=== PATIENT | male | born 1950 | race Caucasian/White ===

== ENCOUNTER 2019-01-02 19:52 | Inpatient (IN) | payer MEDICARE, MEDICAID ==
[~2019-01-02] VITALS: Ht 175.3 cm; Wt 84.0 kg
--- NOTE | 2019-01-02 20:11 | NUR ---
PT PLACED ON MONITOR AND PA AT BEDSIDE. PT REPORTS SLIGHT PAIN IN CHEST.
--- NOTE | 2019-01-02 20:35 | NUR ---
PT REPORTS ANXIETY BUT NO CP AT THIS TIME. SECOND IV PLACED FOR CTA SCAN.
[2019-01-02 21:11] LABS: BASOPHILS # (AUTO) 0.02 x10^3/uL (0-0.1); BASOPHILS % (AUTO) 0 % (0-1); EOSINOPHILS # (AUTO) 0.11 x10^3/uL (0-0.4); EOSINOPHILS % (AUTO) 1 % (1-7); LYMPHOCYTES # (AUTO) 2.43 x10^3/uL (1-3.4); LYMPHOCYTES % (AUTO) 21 % (22-44); MD NO; MEAN CORPUSCULAR HEMOGLOBIN 30.6 pg (27.5-34.5); MEAN CORPUSCULAR HGB CONC 33.9 g/dL (33.2-36.2); MEAN PLATELET VOLUME 8.9 fL (7.4-10.4); MONOCYTES # (AUTO) 0.78 x10^3/uL (0.2-0.8); MONOCYTES % (AUTO) 7 % (2-9); NEUTROPHILS # (AUTO) 8.27 x10^3/uL (1.8-6.8); NEUTROPHILS % (AUTO) 71 % (42-75); PLATELET COUNT 282 x10^3/uL (130-400); RED BLOOD COUNT 4.86 x10^6/uL (4.38-5.82); RED CELL DISTRIBUTION WIDTH 13.2 % (9.4-14.8)
[2019-01-02 21:21] LABS: ALBUMIN 3.8 g/dL (3.4-5.0); ANION GAP 10 mmol/L (5-15); CHLORIDE 110 mmol/L (98-107)
--- NOTE | 2019-01-02 21:22 | NUR ---
PT IN NO DISTRESS AWAITING TEST RESULTS AND CTA ORDERED.
[2019-01-02 21:26] LABS: ALANINE AMINOTRANSFERASE 25 U/L (12-78); ALKALINE PHOSPHATASE 58 U/L (45-117); BILIRUBIN,TOTAL 0.6 mg/dL (0.2-1.0); TOTAL PROTEIN 7.1 g/dL (6.4-8.2)
--- NOTE | 2019-01-02 21:39 | NUR ---
PT TO CTA VIA GURNEY.
[2019-01-02] MEDS ORDERED: OMNIPAQUE 350 MG/ML, 100ML BOTTLE ONE (21:54)
[2019-01-02] MEDS ORDERED: HEPARIN 5,000 UNITS/ML, 1ML IV ONE (22:30)
[2019-01-02] MEDS ORDERED: HEPARIN 5,000 UNITS/ML, 1ML IV PRN (22:30)
[2019-01-02] MEDS ORDERED: HEPARIN 25,000 UNITS/500ML PMX 500 ML IV PRN (22:30)
[2019-01-02] MEDS ORDERED: HEPARIN 5,000 UNITS/ML, 1ML ONE (22:38)
[2019-01-02] MEDS ORDERED: HEPARIN 25,000 UNITS/500ML PMX 500 ML ONE (22:39)
--- NOTE | 2019-01-02 22:48 | NUR ---
HEPARIN STARTED ORDERED AND PER PHARMACY.
[2019-01-02] MEDS ORDERED: MORPHINE SULFATE 4 MG/ML, 1ML IVPush PRN (23:00)
[2019-01-02] MEDS ORDERED: ONDANSETRON 2MG/ML, 2ML IVPush PRN (23:00)
--- NOTE | 2019-01-02 23:03 | NUR ---
REPORT CALLED TO FLOOR. PT READY FOR TRANSPORT.
[2019-01-02 23:42] VITALS: BP 109/72
[2019-01-02] MEDS ORDERED: METF-649 PO (23:51)
[2019-01-03] VITALS (8 sets, daily range): BP systolic 91–107; BP diastolic 61–74
[2019-01-03] MEDS ORDERED: ONDANSETRON 2MG/ML, 2ML IVPush PRN
[2019-01-03] MEDS ORDERED: ENALAPRILAT 1.25 MG/ML, 2ML IVPush PRN
[2019-01-03 00:30] LABS: HEMOGLOBIN A1C 7.7 % (4.2-6.3)
[2019-01-03] MEDS: LACTATED RINGERS 1,000 ML IV SCH ×2 (00:35→10:15)
[2019-01-03 05:55] LABS: BASOPHILS # (AUTO) 0.03 x10^3/uL (0-0.1); BASOPHILS % (AUTO) 0 % (0-1); EOSINOPHILS # (AUTO) 0.03 x10^3/uL (0-0.4); EOSINOPHILS % (AUTO) 0 % (1-7); LYMPHOCYTES # (AUTO) 2.27 x10^3/uL (1-3.4); LYMPHOCYTES % (AUTO) 20 % (22-44); MD NO; MEAN CORPUSCULAR HEMOGLOBIN 30.6 pg (27.5-34.5); MEAN CORPUSCULAR VOLUME 89.9 fL (81-97); MEAN PLATELET VOLUME 9.5 fL (7.4-10.4); MONOCYTES # (AUTO) 0.84 x10^3/uL (0.2-0.8); MONOCYTES % (AUTO) 7 % (2-9); NEUTROPHILS # (AUTO) 8.16 x10^3/uL (1.8-6.8); NEUTROPHILS % (AUTO) 72 % (42-75); PLATELET COUNT 261 x10^3/uL (130-400); RED BLOOD COUNT 4.47 x10^6/uL (4.38-5.82); RED CELL DISTRIBUTION WIDTH 13.5 % (9.4-14.8)
[2019-01-03] MEDS ORDERED: ASPIRIN 325 MG TABLET EC PO SCH (06:00)
[2019-01-03 06:07] LABS: CALCIUM 8.7 mg/dL (8.5-10.1); CHLORIDE 111 mmol/L (98-107)
[2019-01-03 06:15] LABS: ANION GAP 15 mmol/L (5-15); CHOL/HDL RATIO 5.3; CHOLESTEROL, TOTAL 224 mg/dL (140-239); CREATININE 0.81 mg/dL (0.7-1.3); HDL CHOL % 19 % (26-37); HDL CHOLESTEROL (DIRECT) 42 mg/dL (40-60); LDL CHOLESTEROL,CALCULATED 159 mg/dL (54-169); LDL/HDL RATIO 3.8 (0.5-3.0); TRIGLYCERIDES 115 mg/dL (50-200); VLDL CHOLESTEROL 23 mg/dL (0-25)
[2019-01-03] MEDS: INSULIN LISPRO 100 UNITS/ML, PEN SQ-INSULIN SCH ×4 (07:00→20:51)
[2019-01-03] MEDS ORDERED: MANNITOL PMX 20% 500 ML IVPB PRN (07:30)
[2019-01-03] MEDS ORDERED: EPINEPHRINE 2 MG in SODIUM CHLORIDE 0.9% 248 ML IV SCH (07:30)
[2019-01-03] MEDS ORDERED: VANCOMYCIN 1,200 MG in SODIUM CHLORIDE 0.9% 250 ML IV PRN (07:30)
[2019-01-03] MEDS ORDERED: POTASSIUM CHLORIDE 80 MEQ, SODIUM BICARBONATE 8.4% 10 MEQ, MAGNESIUM SULFATE 0.5 GM, LI... IV PRN (07:30)
[2019-01-03] MEDS ORDERED: REGULAR INSULIN 62.5 UNITS in SODIUM CHLORIDE 0.9% 249.375 ML IV PRN (07:30)
[2019-01-03] MEDS ORDERED: PHENYLEPHRINE 10 MG in SODIUM CHLORIDE 0.9% 249 ML IV PRN (07:30)
[2019-01-03] MEDS ORDERED: CEFUROXIME 1.5 GM in SODIUM CHLORIDE 0.9% 50 ML IVPB PRN (07:30)
[2019-01-03] MEDS ORDERED: DEXMEDETOMIDINE 200 MCG in SODIUM CHLORIDE 0.9% 48 ML IV SCH (07:30)
[2019-01-03] MEDS: NITROGLYCERIN 0.4 MG BOTTLE (25 TABS) SL PRN ×2 (10:57→11:05)
[2019-01-03] MEDS ORDERED: MIDAZOLAM 1 MG/ML, 5ML ONE (12:49)
[2019-01-03] MEDS ORDERED: TICAGRELOR 90 MG TABLET ONE (12:49)
[2019-01-03] MEDS ORDERED: FENTANYL PF 100 MCG/2ML ONE (12:49)
[2019-01-03] MEDS ORDERED: VERAPAMIL 2.5 MG/ML, 2ML ONE (12:49)
[2019-01-03] MEDS ORDERED: LIDOCAINE 2%, 20ML ONE (12:50)
[2019-01-03] MEDS ORDERED: BIVALIRUDIN 250 MG ONE ×2 (12:50→13:34)
[2019-01-03] MEDS ORDERED: DOPAMINE/D5W PMX 250 ML ONE (13:26)
[2019-01-03] MEDS ORDERED: ALBUMIN HUMAN 5% 500 ML IV PRN (13:30)
[2019-01-03] MEDS ORDERED: BIVALIRUDIN 250 MG in SODIUM CHLORIDE 0.9% 50 ML IV SCH (14:25)
[2019-01-03] MEDS ORDERED: HEPARIN 25,000 UNITS/500ML PMX 500 ML IV SCH (14:25)
[2019-01-03] MEDS ORDERED: HEPARIN 25,000 UNITS in DEXTROSE 10% 500 ML IV SCH (14:25)
[2019-01-03] MEDS ORDERED: HEPARIN 25,000 UNITS in DEXTROSE 20% 500 ML IV SCH (14:25)
[2019-01-03] MEDS ORDERED: SODIUM CHLORIDE 0.9% 1,000 ML IV SCH (14:25)
[2019-01-03 16:48] LABS: PLATELET COUNT 307 x10^3/uL (130-400)
[2019-01-03] MEDS: morphine SULFATE 10 MG/ML, 1ML IVPush PRN ×2 (19:59→23:48)
[2019-01-03] MEDS: TICAGRELOR 90 MG TABLET PO SCH (19:59)
[2019-01-03 20:59] LABS: BASOPHILS # (AUTO) 0.01 x10^3/uL (0-0.1); BASOPHILS % (AUTO) 0 % (0-1); EOSINOPHILS % (AUTO) 0 % (1-7); LYMPHOCYTES # (AUTO) 0.91 x10^3/uL (1-3.4); LYMPHOCYTES % (AUTO) 6 % (22-44); MD NO; MEAN CORPUSCULAR HGB CONC 34.3 g/dL (33.2-36.2); MEAN CORPUSCULAR VOLUME 90.3 fL (81-97); MEAN PLATELET VOLUME 9.5 fL (7.4-10.4); MONOCYTES # (AUTO) 1.27 x10^3/uL (0.2-0.8); MONOCYTES % (AUTO) 9 % (2-9); NEUTROPHILS % (AUTO) 85 % (42-75); PLATELET COUNT 289 x10^3/uL (130-400); RED CELL DISTRIBUTION WIDTH 13.1 % (9.4-14.8)
[2019-01-03] MEDS ORDERED: SODIUM CHLORIDE 0.9% 1,000ML IVBOLUS ONE (21:00)
[2019-01-03 21:06] LABS: ANION GAP 11 mmol/L (5-15); CALCIUM 8.3 mg/dL (8.5-10.1); CHLORIDE 109 mmol/L (98-107); CREATININE 1.36 mg/dL (0.7-1.3)
[2019-01-04] MEDS: morphine SULFATE 10 MG/ML, 1ML IVPush PRN ×2 (05:14→23:06)
[2019-01-04 05:33] LABS: ALANINE AMINOTRANSFERASE 22 U/L (12-78); ANION GAP 9 mmol/L (5-15); CALCIUM 7.9 mg/dL (8.5-10.1); CHLORIDE 111 mmol/L (98-107); CREATININE 1.12 mg/dL (0.7-1.3)
[2019-01-04 05:34] LABS: MEAN CORPUSCULAR HEMOGLOBIN 31.3 pg (27.5-34.5); MEAN CORPUSCULAR HGB CONC 34.6 g/dL (33.2-36.2); MEAN CORPUSCULAR VOLUME 90.6 fL (81-97); MEAN PLATELET VOLUME 9.4 fL (7.4-10.4); PLATELET COUNT 224 x10^3/uL (130-400); RED BLOOD COUNT 3.74 x10^6/uL (4.38-5.82); RED CELL DISTRIBUTION WIDTH 13.2 % (9.4-14.8)
[2019-01-04 05:35] LABS: ALKALINE PHOSPHATASE 43 U/L (45-117); BILIRUBIN,TOTAL 0.8 mg/dL (0.2-1.0); TOTAL PROTEIN 5.7 g/dL (6.4-8.2)
[2019-01-04 05:56] LABS: BASOPHILS # (AUTO) 0.05 x10^3/uL (0-0.1); BASOPHILS % (AUTO) 0 % (0-1); EOSINOPHILS # (AUTO) 0.01 x10^3/uL (0-0.4); EOSINOPHILS % (AUTO) 0 % (1-7); LYMPHOCYTES # (AUTO) 1.91 x10^3/uL (1-3.4); LYMPHOCYTES % (AUTO) 14 % (22-44); MD SCAN; MONOCYTES # (AUTO) 1.45 x10^3/uL (0.2-0.8); MONOCYTES % (AUTO) 11 % (2-9); NEUTROPHILS # (AUTO) 10.11 x10^3/uL (1.8-6.8); NEUTROPHILS % (AUTO) 75 % (42-75)
[2019-01-04] MEDS: INSULIN LISPRO 100 UNITS/ML, PEN SQ-INSULIN SCH ×4 (07:25→20:13)
[2019-01-04] MEDS: FUROSEMIDE 20 MG TABLET PO SCH (08:38)
[2019-01-04] MEDS: TICAGRELOR 90 MG TABLET PO SCH ×2 (08:39→20:00)
[2019-01-04] MEDS: ASPIRIN 81 MG TABLET EC PO SCH (08:39)
[2019-01-04] MEDS ORDERED: MIDAZOLAM 1 MG/ML, 5ML ONE (14:05)
[2019-01-04] MEDS ORDERED: FENTANYL PF 250 MCG/5ML ONE (14:05)
[2019-01-05] MEDS: morphine SULFATE 10 MG/ML, 1ML IVPush PRN ×2 (01:59→20:36)
[2019-01-05] MEDS: NITROGLYCERIN 0.4 MG BOTTLE (25 TABS) SL PRN (03:49)
[2019-01-05 04:45] LABS: BASOPHILS # (AUTO) 0.04 x10^3/uL (0-0.1); BASOPHILS % (AUTO) 0 % (0-1); EOSINOPHILS # (AUTO) 0.33 x10^3/uL (0-0.4); EOSINOPHILS % (AUTO) 3 % (1-7); LYMPHOCYTES % (AUTO) 11 % (22-44); MD NO; MEAN CORPUSCULAR HEMOGLOBIN 30.9 pg (27.5-34.5); MEAN CORPUSCULAR HGB CONC 34.1 g/dL (33.2-36.2); MEAN CORPUSCULAR VOLUME 90.7 fL (81-97); MEAN PLATELET VOLUME 9.2 fL (7.4-10.4); MONOCYTES # (AUTO) 1.33 x10^3/uL (0.2-0.8); MONOCYTES % (AUTO) 10 % (2-9); NEUTROPHILS # (AUTO) 10.11 x10^3/uL (1.8-6.8); NEUTROPHILS % (AUTO) 76 % (42-75); PLATELET COUNT 178 x10^3/uL (130-400); RED BLOOD COUNT 3.07 x10^6/uL (4.38-5.82); RED CELL DISTRIBUTION WIDTH 13.5 % (9.4-14.8)
[2019-01-05 04:48] LABS: ANION GAP 10 mmol/L (5-15); CALCIUM 7.8 mg/dL (8.5-10.1); CHLORIDE 113 mmol/L (98-107)
[2019-01-05 04:54] LABS: ALANINE AMINOTRANSFERASE 18 U/L (12-78); ALKALINE PHOSPHATASE 41 U/L (45-117); BILIRUBIN,TOTAL 0.8 mg/dL (0.2-1.0); CREATININE 1.01 mg/dL (0.7-1.3); TOTAL PROTEIN 5.7 g/dL (6.4-8.2)
[2019-01-05] MEDS: INSULIN LISPRO 100 UNITS/ML, PEN SQ-INSULIN SCH ×4 (08:40→20:43)
[2019-01-05] MEDS: TICAGRELOR 90 MG TABLET PO SCH ×2 (08:46→20:37)
[2019-01-05] MEDS: ASPIRIN 81 MG TABLET EC PO SCH (08:46)
[2019-01-05] MEDS: FUROSEMIDE 20 MG TABLET PO SCH (08:46)
[2019-01-05] MEDS ORDERED: MAGNESIUM SULFATE PMX 2GM/50ML 50 ML IV ONE (11:00)
[2019-01-05] MEDS: ENOXAPARIN 40 MG/0.4 ML SQ SCH (11:19)
[2019-01-05] MEDS: INSULIN GLARGINE 100 UNITS/ML, PEN SQ-INSULIN SCH ×2 (11:20→20:45)
[2019-01-05 12:37] LABS: MICROSCOPIC INDICATED
[2019-01-05 12:55] LABS: CULTURE INDICATED? YES
[2019-01-05] MEDS: CEFTRIAXONE PMX 1GM/50ML 50 ML IV SCH (14:35)
[2019-01-05] MEDS: FUROSEMIDE 20 MG/2 ML IV SCH (18:14)
[2019-01-05 20:00] VITALS: BP 99/57
[2019-01-05] MEDS: ATORVASTATIN 80 MG TABLET PO SCH (20:37)
[2019-01-06 02:32] VITALS: BP 93/49
[2019-01-06 05:13] LABS: BASOPHILS # (AUTO) 0.03 x10^3/uL (0-0.1); BASOPHILS % (AUTO) 0 % (0-1); EOSINOPHILS # (AUTO) 0.12 x10^3/uL (0-0.4); EOSINOPHILS % (AUTO) 1 % (1-7); LYMPHOCYTES # (AUTO) 1.42 x10^3/uL (1-3.4); LYMPHOCYTES % (AUTO) 12 % (22-44); MD NO; MEAN CORPUSCULAR HEMOGLOBIN 31.1 pg (27.5-34.5); MEAN CORPUSCULAR HGB CONC 34.1 g/dL (33.2-36.2); MEAN PLATELET VOLUME 9.9 fL (7.4-10.4); MONOCYTES # (AUTO) 0.93 x10^3/uL (0.2-0.8); MONOCYTES % (AUTO) 8 % (2-9); NEUTROPHILS # (AUTO) 9.53 x10^3/uL (1.8-6.8); NEUTROPHILS % (AUTO) 79 % (42-75); PLATELET COUNT 163 x10^3/uL (130-400); RED BLOOD COUNT 2.76 x10^6/uL (4.38-5.82); RED CELL DISTRIBUTION WIDTH 13.3 % (9.4-14.8)
[2019-01-06 05:29] LABS: ALBUMIN 2.9 g/dL (3.4-5.0); ANION GAP 9 mmol/L (5-15); CALCIUM 8.3 mg/dL (8.5-10.1); CHLORIDE 109 mmol/L (98-107)
[2019-01-06 05:32] LABS: ALANINE AMINOTRANSFERASE 19 U/L (12-78); ALKALINE PHOSPHATASE 42 U/L (45-117); BILIRUBIN,TOTAL 0.7 mg/dL (0.2-1.0); CREATININE 1.07 mg/dL (0.7-1.3)
[2019-01-06] MEDS: INSULIN LISPRO 100 UNITS/ML, PEN SQ-INSULIN SCH ×4 (06:40→22:13)
[2019-01-06 08:00] VITALS: BP 108/54
[2019-01-06] MEDS: FUROSEMIDE 20 MG TABLET PO SCH (09:00)
[2019-01-06] MEDS: MAGNESIUM OXIDE 400 MG TABLET PO SCH (09:13)
[2019-01-06] MEDS: ASPIRIN 81 MG TABLET EC PO SCH (09:13)
[2019-01-06] MEDS: FUROSEMIDE 20 MG/2 ML IV SCH ×2 (09:13→17:00)
[2019-01-06] MEDS: INSULIN GLARGINE 100 UNITS/ML, PEN SQ-INSULIN SCH ×2 (09:16→22:13)
[2019-01-06] MEDS: morphine SULFATE 10 MG/ML, 1ML IVPush PRN (09:26)
[2019-01-06] MEDS: TICAGRELOR 90 MG TABLET PO SCH ×2 (11:55→22:12)
[2019-01-06] MEDS: CEFTRIAXONE PMX 1GM/50ML 50 ML IV SCH (13:41)
[2019-01-06] MEDS: ENOXAPARIN 40 MG/0.4 ML SQ SCH (13:52)
[2019-01-06 14:29] LABS: BASOPHILS % (AUTO) 0 % (0-1); EOSINOPHILS # (AUTO) 0.18 x10^3/uL (0-0.4); EOSINOPHILS % (AUTO) 1 % (1-7); LYMPHOCYTES # (AUTO) 1.16 x10^3/uL (1-3.4); LYMPHOCYTES % (AUTO) 9 % (22-44); MD NO; MEAN CORPUSCULAR HEMOGLOBIN 30.4 pg (27.5-34.5); MEAN CORPUSCULAR HGB CONC 33.6 g/dL (33.2-36.2); MEAN CORPUSCULAR VOLUME 90.6 fL (81-97); MEAN PLATELET VOLUME 9.7 fL (7.4-10.4); MONOCYTES # (AUTO) 0.84 x10^3/uL (0.2-0.8); MONOCYTES % (AUTO) 7 % (2-9); NEUTROPHILS # (AUTO) 10.67 x10^3/uL (1.8-6.8); NEUTROPHILS % (AUTO) 83 % (42-75); PLATELET COUNT 169 x10^3/uL (130-400); RED BLOOD COUNT 2.79 x10^6/uL (4.38-5.82); RED CELL DISTRIBUTION WIDTH 12.9 % (9.4-14.8)
[2019-01-06 17:19] VITALS: BP 98/66
[2019-01-06 18:45] VITALS: BP 104/71
[2019-01-06] MEDS: LINEZOLID 600 MG TABLET PO SCH (22:12)
[2019-01-06] MEDS: ATORVASTATIN 80 MG TABLET PO SCH (22:12)
[2019-01-07 03:25] VITALS: BP 99/48
[2019-01-07 05:31] LABS: BASOPHILS # (AUTO) 0.03 x10^3/uL (0-0.1); BASOPHILS % (AUTO) 0 % (0-1); EOSINOPHILS # (AUTO) 0.15 x10^3/uL (0-0.4); EOSINOPHILS % (AUTO) 1 % (1-7); LYMPHOCYTES # (AUTO) 1.77 x10^3/uL (1-3.4); LYMPHOCYTES % (AUTO) 13 % (22-44); MD NO; MEAN CORPUSCULAR HGB CONC 34.2 g/dL (33.2-36.2); MEAN CORPUSCULAR VOLUME 90.8 fL (81-97); MEAN PLATELET VOLUME 10.1 fL (7.4-10.4); MONOCYTES # (AUTO) 0.86 x10^3/uL (0.2-0.8); MONOCYTES % (AUTO) 6 % (2-9); NEUTROPHILS # (AUTO) 10.75 x10^3/uL (1.8-6.8); NEUTROPHILS % (AUTO) 79 % (42-75); PLATELET COUNT 179 x10^3/uL (130-400); RED BLOOD COUNT 2.61 x10^6/uL (4.38-5.82); RED CELL DISTRIBUTION WIDTH 13.1 % (9.4-14.8)
[2019-01-07 05:38] LABS: CHLORIDE 107 mmol/L (98-107)
[2019-01-07 05:50] LABS: ALANINE AMINOTRANSFERASE 15 U/L (12-78); ALBUMIN 2.9 g/dL (3.4-5.0); ALKALINE PHOSPHATASE 44 U/L (45-117); ANION GAP 8 mmol/L (5-15); BILIRUBIN,TOTAL 0.7 mg/dL (0.2-1.0); CALCIUM 8.5 mg/dL (8.5-10.1); CREATININE 1.09 mg/dL (0.7-1.3); TOTAL PROTEIN 6.1 g/dL (6.4-8.2)
[2019-01-07] MEDS ORDERED: POTASSIUM CHLORIDE 20 MEQ TAB.ER.PRT ONE (08:08)
[2019-01-07] MEDS: FUROSEMIDE 20 MG/2 ML IV SCH ×2 (08:14→17:32)
[2019-01-07] MEDS: INSULIN LISPRO 100 UNITS/ML, PEN SQ-INSULIN SCH ×4 (08:14→21:33)
[2019-01-07] MEDS: INSULIN GLARGINE 100 UNITS/ML, PEN SQ-INSULIN SCH ×2 (08:14→21:34)
[2019-01-07] MEDS: TICAGRELOR 90 MG TABLET PO SCH ×2 (08:15→21:32)
[2019-01-07] MEDS: POTASSIUM CHLORIDE 20 MEQ TAB.ER.PRT PO SCH ×2 (08:15→17:32)
[2019-01-07] MEDS: ASPIRIN 81 MG TABLET EC PO SCH (08:15)
[2019-01-07] MEDS: MAGNESIUM OXIDE 400 MG TABLET PO SCH (08:15)
[2019-01-07] MEDS: LINEZOLID 600 MG TABLET PO SCH ×2 (08:15→21:31)
[2019-01-07 11:46] VITALS: BP 103/68
[2019-01-07] MEDS: ENOXAPARIN 40 MG/0.4 ML SQ SCH (11:51)
[2019-01-07] MEDS: morphine SULFATE 10 MG/ML, 1ML IVPush PRN (11:51)
[2019-01-07] MEDS: CEFTRIAXONE PMX 1GM/50ML 50 ML IV SCH (13:35)
[2019-01-07 14:00] VITALS: BP 106/70
[2019-01-07 17:35] VITALS: BP 118/78
[2019-01-07 20:06] VITALS: BP 107/72
[2019-01-07] MEDS: ATORVASTATIN 80 MG TABLET PO SCH (21:31)
[2019-01-08] MEDS: DIPHENHYDRAMINE 50 MG CAPSULE PO PRN ×2 (00:04→22:18)
[2019-01-08 01:11] VITALS: BP 101/77
[2019-01-08 01:47] VITALS: BP 105/69
[2019-01-08 05:43] LABS: ANION GAP 7 mmol/L (5-15); CALCIUM 8.2 mg/dL (8.5-10.1); CHLORIDE 110 mmol/L (98-107); CREATININE 1.03 mg/dL (0.7-1.3)
[2019-01-08 07:00] LABS: BASOPHILS # (AUTO) 0.03 x10^3/uL (0-0.1); BASOPHILS % (AUTO) 0 % (0-1); EOSINOPHILS # (AUTO) 0.47 x10^3/uL (0-0.4); EOSINOPHILS % (AUTO) 4 % (1-7); LYMPHOCYTES # (AUTO) 1.79 x10^3/uL (1-3.4); LYMPHOCYTES % (AUTO) 13 % (22-44); MD NO; MEAN CORPUSCULAR HEMOGLOBIN 29.7 pg (27.5-34.5); MEAN CORPUSCULAR HGB CONC 32.6 g/dL (33.2-36.2); MEAN CORPUSCULAR VOLUME 91.2 fL (81-97); MEAN PLATELET VOLUME 9.4 fL (7.4-10.4); MONOCYTES # (AUTO) 0.81 x10^3/uL (0.2-0.8); MONOCYTES % (AUTO) 6 % (2-9); NEUTROPHILS # (AUTO) 10.48 x10^3/uL (1.8-6.8); NEUTROPHILS % (AUTO) 77 % (42-75); PLATELET COUNT 243 x10^3/uL (130-400); RED CELL DISTRIBUTION WIDTH 13.8 % (9.4-14.8)
[2019-01-08 08:00] VITALS: BP 111/73
[2019-01-08] MEDS: LINEZOLID 600 MG TABLET PO SCH ×2 (08:51→22:18)
[2019-01-08] MEDS: MAGNESIUM OXIDE 400 MG TABLET PO SCH (08:53)
[2019-01-08] MEDS: TICAGRELOR 90 MG TABLET PO SCH ×2 (08:53→22:19)
[2019-01-08] MEDS: ASPIRIN 81 MG TABLET EC PO SCH (08:53)
[2019-01-08] MEDS: POTASSIUM CHLORIDE 20 MEQ TAB.ER.PRT PO SCH ×2 (08:53→16:55)
[2019-01-08] MEDS: INSULIN GLARGINE 100 UNITS/ML, PEN SQ-INSULIN SCH ×2 (08:55→22:18)
[2019-01-08] MEDS: FUROSEMIDE 20 MG/2 ML IV SCH ×2 (08:56→16:55)
[2019-01-08] MEDS: INSULIN LISPRO 100 UNITS/ML, PEN SQ-INSULIN SCH ×4 (08:56→22:18)
[2019-01-08] MEDS ORDERED: HEPARIN wt. based STROKE protocol MC PRN (10:30)
[2019-01-08] MEDS: CEFTRIAXONE PMX 1GM/50ML 50 ML IV SCH (12:44)
[2019-01-08 12:50] VITALS: BP 109/62
[2019-01-08] MEDS: HEPARIN 25,000 UNITS/500ML PMX 500 ML IV PRN (12:50)
[2019-01-08 19:57] VITALS: BP 104/66
[2019-01-08] MEDS: ATORVASTATIN 80 MG TABLET PO SCH (22:18)
[2019-01-09 01:27] VITALS: BP 97/59
[2019-01-09 03:17] LABS: ANION GAP 8 mmol/L (5-15); CALCIUM 8.9 mg/dL (8.5-10.1); CHLORIDE 110 mmol/L (98-107); CREATININE 1.06 mg/dL (0.7-1.3)
[2019-01-09 07:26] VITALS: BP 101/66
[2019-01-09] MEDS: MAGNESIUM OXIDE 400 MG TABLET PO SCH (08:16)
[2019-01-09] MEDS: TICAGRELOR 90 MG TABLET PO SCH ×2 (08:16→22:15)
[2019-01-09] MEDS: ASPIRIN 81 MG TABLET EC PO SCH (08:16)
[2019-01-09] MEDS: INSULIN LISPRO 100 UNITS/ML, PEN SQ-INSULIN SCH ×4 (08:17→22:14)
[2019-01-09] MEDS: AMPICILLIN/SULBACTAM 3 GM in SODIUM CHLORIDE 0.9% 100 ML IV SCH ×3 (08:17→19:48)
[2019-01-09] MEDS: FUROSEMIDE 20 MG/2 ML IV SCH ×2 (08:17→18:01)
[2019-01-09] MEDS: INSULIN GLARGINE 100 UNITS/ML, PEN SQ-INSULIN SCH ×2 (08:19→22:15)
[2019-01-09 12:40] VITALS: BP 101/67
[2019-01-09] MEDS: HEPARIN 25,000 UNITS/500ML PMX 500 ML IV PRN (12:46)
[2019-01-09] MEDS: GUAIFENESIN 100 MG/5 ML, 5ML UDC PO PRN ×2 (13:50→22:15)
[2019-01-09 20:04] VITALS: BP 101/66
[2019-01-09] MEDS: ATORVASTATIN 80 MG TABLET PO SCH (22:15)
[2019-01-09] MEDS: DIPHENHYDRAMINE 50 MG CAPSULE PO PRN (23:12)
[2019-01-10] VITALS (8 sets, daily range): BP systolic 95–112; BP diastolic 62–76
[2019-01-10] MEDS: AMPICILLIN/SULBACTAM 3 GM in SODIUM CHLORIDE 0.9% 100 ML IV SCH ×4 (02:18→20:28)
[2019-01-10 02:26] LABS: BASOPHILS # (AUTO) 0.07 x10^3/uL (0-0.1); BASOPHILS % (AUTO) 1 % (0-1); EOSINOPHILS # (AUTO) 0.61 x10^3/uL (0-0.4); EOSINOPHILS % (AUTO) 5 % (1-7); LYMPHOCYTES # (AUTO) 2.21 x10^3/uL (1-3.4); LYMPHOCYTES % (AUTO) 19 % (22-44); MD NO; MEAN CORPUSCULAR HEMOGLOBIN 30.7 pg (27.5-34.5); MEAN CORPUSCULAR HGB CONC 33.6 g/dL (33.2-36.2); MEAN CORPUSCULAR VOLUME 91.2 fL (81-97); MEAN PLATELET VOLUME 8.7 fL (7.4-10.4); MONOCYTES % (AUTO) 6 % (2-9); NEUTROPHILS # (AUTO) 7.88 x10^3/uL (1.8-6.8); NEUTROPHILS % (AUTO) 69 % (42-75); PLATELET COUNT 329 x10^3/uL (130-400); RED BLOOD COUNT 2.85 x10^6/uL (4.38-5.82); RED CELL DISTRIBUTION WIDTH 13.1 % (9.4-14.8)
[2019-01-10 02:39] LABS: ANION GAP 7 mmol/L (5-15); CALCIUM 8.6 mg/dL (8.5-10.1); CHLORIDE 111 mmol/L (98-107); CREATININE 1.07 mg/dL (0.7-1.3)
[2019-01-10] MEDS: HEPARIN 25,000 UNITS/500ML PMX 500 ML IV PRN ×2 (04:58→20:24)
[2019-01-10] MEDS: INSULIN LISPRO 100 UNITS/ML, PEN SQ-INSULIN SCH ×4 (07:00→20:27)
[2019-01-10] MEDS: FUROSEMIDE 20 MG/2 ML IV SCH (08:24)
[2019-01-10] MEDS: INSULIN GLARGINE 100 UNITS/ML, PEN SQ-INSULIN SCH ×2 (08:25→20:27)
[2019-01-10] MEDS: ASPIRIN 81 MG TABLET EC PO SCH (08:25)
[2019-01-10] MEDS: TICAGRELOR 90 MG TABLET PO SCH ×2 (08:25→20:29)
[2019-01-10] MEDS: MAGNESIUM OXIDE 400 MG TABLET PO SCH (08:25)
[2019-01-10] MEDS ORDERED: FUROSEMIDE 40 MG TABLET PO SCH (09:00)
[2019-01-10] MEDS: CARVEDILOL 3.125 MG TABLET PO SCH (17:28)
[2019-01-10] MEDS: ATORVASTATIN 80 MG TABLET PO SCH (20:29)
[2019-01-10] MEDS: DIPHENHYDRAMINE 50 MG CAPSULE PO PRN (22:00)
[2019-01-10] MEDS: morphine SULFATE 10 MG/ML, 1ML IVPush PRN ×2 (22:14→22:30)
[2019-01-11] VITALS (7 sets, daily range): BP systolic 97–112; BP diastolic 66–73
[2019-01-11] MEDS: AMPICILLIN/SULBACTAM 3 GM in SODIUM CHLORIDE 0.9% 100 ML IV SCH ×4 (02:00→19:27)
[2019-01-11] MEDS: CARVEDILOL 3.125 MG TABLET PO SCH ×2 (06:12→17:35)
[2019-01-11] MEDS: INSULIN LISPRO 100 UNITS/ML, PEN SQ-INSULIN SCH ×4 (07:00→21:00)
[2019-01-11] MEDS ORDERED: POTASSIUM CHLORIDE 20 MEQ TAB.ER.PRT PO ONE (08:00)
[2019-01-11 08:22] LABS: BASOPHILS # (AUTO) 0.02 x10^3/uL (0-0.1); BASOPHILS % (AUTO) 0 % (0-1); EOSINOPHILS # (AUTO) 0.56 x10^3/uL (0-0.4); EOSINOPHILS % (AUTO) 5 % (1-7); LYMPHOCYTES # (AUTO) 2.19 x10^3/uL (1-3.4); LYMPHOCYTES % (AUTO) 18 % (22-44); MD NO; MEAN CORPUSCULAR HEMOGLOBIN 29.9 pg (27.5-34.5); MEAN CORPUSCULAR HGB CONC 32.6 g/dL (33.2-36.2); MEAN CORPUSCULAR VOLUME 91.6 fL (81-97); MEAN PLATELET VOLUME 8.1 fL (7.4-10.4); MONOCYTES % (AUTO) 7 % (2-9); NEUTROPHILS # (AUTO) 8.51 x10^3/uL (1.8-6.8); NEUTROPHILS % (AUTO) 70 % (42-75); PLATELET COUNT 333 x10^3/uL (130-400); RED BLOOD COUNT 3.16 x10^6/uL (4.38-5.82); RED CELL DISTRIBUTION WIDTH 13.8 % (9.4-14.8)
[2019-01-11 08:36] LABS: % IRON SATURATION 7 % (20-55); IRON LEVEL 26 mcg/dL (65-175); TOTAL IRON BINDING CAPACITY 378 mcg/dL (250-450)
[2019-01-11 08:44] LABS: ALBUMIN 2.7 g/dL (3.4-5.0); ANION GAP 9 mmol/L (5-15); CALCIUM 8.2 mg/dL (8.5-10.1); CHLORIDE 111 mmol/L (98-107); CREATININE 0.85 mg/dL (0.7-1.3)
[2019-01-11] MEDS: TICAGRELOR 90 MG TABLET PO SCH ×2 (10:10→20:59)
[2019-01-11] MEDS: ASPIRIN 81 MG TABLET EC PO SCH (10:10)
[2019-01-11] MEDS: FUROSEMIDE 40 MG/4 ML IV SCH (10:10)
[2019-01-11] MEDS: MAGNESIUM OXIDE 400 MG TABLET PO SCH (10:11)
[2019-01-11] MEDS: INSULIN GLARGINE 100 UNITS/ML, PEN SQ-INSULIN SCH ×2 (10:11→21:01)
[2019-01-11] MEDS: FERROUS SULFATE 325 MG TABLET PO SCH (12:08)
[2019-01-11] MEDS: GUAIFENESIN 100 MG/5 ML, 5ML UDC PO PRN (16:25)
[2019-01-11] MEDS: ATORVASTATIN 80 MG TABLET PO SCH (20:59)
[2019-01-12] VITALS (8 sets, daily range): BP systolic 98–122; BP diastolic 63–81
[2019-01-12] MEDS: AMPICILLIN/SULBACTAM 3 GM in SODIUM CHLORIDE 0.9% 100 ML IV SCH ×2 (01:15→07:03)
[2019-01-12] MEDS: INSULIN LISPRO 100 UNITS/ML, PEN SQ-INSULIN SCH ×4 (07:00→20:25)
[2019-01-12] MEDS: INSULIN GLARGINE 100 UNITS/ML, PEN SQ-INSULIN SCH ×2 (09:41→20:25)
[2019-01-12] MEDS: FUROSEMIDE 40 MG/4 ML IV SCH (09:42)
[2019-01-12] MEDS: CARVEDILOL 3.125 MG TABLET PO SCH ×2 (09:42→17:45)
[2019-01-12] MEDS: MAGNESIUM OXIDE 400 MG TABLET PO SCH (09:42)
[2019-01-12] MEDS: TICAGRELOR 90 MG TABLET PO SCH ×2 (09:42→20:10)
[2019-01-12] MEDS: ASPIRIN 81 MG TABLET EC PO SCH (09:42)
[2019-01-12] MEDS ORDERED: POTASSIUM CHLORIDE 20 MEQ TAB.ER.PRT PO ONE (11:00)
[2019-01-12] MEDS: LOSARTAN 25MG TABLET PO SCH (11:35)
[2019-01-12] MEDS: ATORVASTATIN 80 MG TABLET PO SCH (20:10)
[2019-01-13 00:50] VITALS: BP 104/69
[2019-01-13 05:51] VITALS: BP 114/72
[2019-01-13] MEDS: CARVEDILOL 3.125 MG TABLET PO SCH ×2 (05:52→16:30)
[2019-01-13 07:00] VITALS: BP 110/72
[2019-01-13] MEDS: INSULIN LISPRO 100 UNITS/ML, PEN SQ-INSULIN SCH ×4 (07:00→20:52)
[2019-01-13] MEDS: INSULIN GLARGINE 100 UNITS/ML, PEN SQ-INSULIN SCH ×2 (09:00→20:52)
[2019-01-13] MEDS: TICAGRELOR 90 MG TABLET PO SCH (12:42)
[2019-01-13] MEDS: ASPIRIN 81 MG TABLET EC PO SCH (12:42)
[2019-01-13] MEDS: SPIRONOLACTONE 25 MG TABLET PO SCH (12:43)
[2019-01-13] MEDS: LOSARTAN 25MG TABLET PO SCH (12:45)
[2019-01-13] MEDS: FUROSEMIDE 40 MG TABLET PO SCH (12:45)
[2019-01-13] MEDS: FERROUS SULFATE 325 MG TABLET PO SCH (14:13)
[2019-01-13] MEDS ORDERED: PRASUGREL 10 MG TABLET PO ONE (14:30)
[2019-01-13 16:25] VITALS: BP 104/65
[2019-01-13] MEDS: LACTOBACILLUS CHEW TABLET PO SCH ×2 (16:30→20:52)
[2019-01-13 20:16] VITALS: BP 103/67
[2019-01-13] MEDS: ATORVASTATIN 80 MG TABLET PO SCH (20:51)
[2019-01-14 00:33] VITALS: BP 106/62
[2019-01-14] MEDS: GUAIFENESIN 100 MG/5 ML, 5ML UDC PO PRN (02:42)
[2019-01-14 05:18] LABS: ANION GAP 7 mmol/L (5-15); CALCIUM 8.4 mg/dL (8.5-10.1); CHLORIDE 110 mmol/L (98-107)
[2019-01-14 05:19] LABS: BASOPHILS # (AUTO) 0.05 x10^3/uL (0-0.1); BASOPHILS % (AUTO) 0 % (0-1); EOSINOPHILS # (AUTO) 0.53 x10^3/uL (0-0.4); EOSINOPHILS % (AUTO) 4 % (1-7); LYMPHOCYTES % (AUTO) 15 % (22-44); MD NO; MEAN CORPUSCULAR HEMOGLOBIN 31.2 pg (27.5-34.5); MEAN CORPUSCULAR HGB CONC 34.3 g/dL (33.2-36.2); MEAN PLATELET VOLUME 7.9 fL (7.4-10.4); MONOCYTES # (AUTO) 1.42 x10^3/uL (0.2-0.8); MONOCYTES % (AUTO) 10 % (2-9); NEUTROPHILS # (AUTO) 9.79 x10^3/uL (1.8-6.8); NEUTROPHILS % (AUTO) 71 % (42-75); PLATELET COUNT 375 x10^3/uL (130-400); RED BLOOD COUNT 3.02 x10^6/uL (4.38-5.82); RED CELL DISTRIBUTION WIDTH 13.6 % (9.4-14.8)
[2019-01-14 06:00] VITALS: BP 98/60
[2019-01-14] MEDS: CARVEDILOL 3.125 MG TABLET PO SCH ×2 (06:03→18:30)
[2019-01-14 06:52] VITALS: BP 101/64
[2019-01-14] MEDS: INSULIN LISPRO 100 UNITS/ML, PEN SQ-INSULIN SCH ×3 (07:00→18:31)
[2019-01-14] MEDS: SPIRONOLACTONE 25 MG TABLET PO SCH (08:04)
[2019-01-14] MEDS: ASPIRIN 81 MG TABLET EC PO SCH (08:05)
[2019-01-14] MEDS: LOSARTAN 25MG TABLET PO SCH (08:05)
[2019-01-14] MEDS: FUROSEMIDE 40 MG TABLET PO SCH (08:05)
[2019-01-14] MEDS: LACTOBACILLUS CHEW TABLET PO SCH ×2 (08:05→18:29)
[2019-01-14] MEDS: INSULIN GLARGINE 100 UNITS/ML, PEN SQ-INSULIN SCH (08:07)
[2019-01-14] MEDS ORDERED: PRASUGREL 10 MG TABLET PO SCH (09:00)
[2019-01-14] MEDS ORDERED: SPIR25TA PO (16:01)
[2019-01-14] MEDS ORDERED: FERR-51 PO (16:01)
[2019-01-14] MEDS ORDERED: ACID1TAB7 PO (16:01)
[2019-01-14] MEDS ORDERED: ASPI81TA45 PO (16:01)
[2019-01-14] MEDS ORDERED: INSU100I11 SQ-INSULIN (16:01)
[2019-01-14] MEDS ORDERED: CARV3.1212 PO (16:01)
[2019-01-14] MEDS ORDERED: ATOR-2 PO (16:01)
[2019-01-14] MEDS ORDERED: NITR0.4T SL (16:01)
[2019-01-14] MEDS ORDERED: FURO40TA6 PO (16:01)
[2019-01-14] MEDS ORDERED: LOSA25TA25 PO (16:01)
[2019-01-14] MEDS ORDERED: INSU100I13 SQ-INSULIN (16:01)
[2019-01-14] MEDS ORDERED: PRAS10TA4 PO (16:01)
== END 2019-01-14 19:00 | disposition home or self-care (01) | DRG 215 ==
LOC: ED 21:59 → EDIP 22:48 → 5SO 23:39 → CCU 01-03 14:46 → ICU 01-05 07:28 → 5SO 01-06 17:00
PROVIDERS: ADMIT Family Medicine; ATTEND Internal Medicine
PROC: 5A0221D Assistance with Cardiac Output using Impeller Pump, Continuous (ICD-10-PCS; principal; 2019-01-03)
PROC: 02HA3RZ Insertion of Short-term External Heart Assist System into Heart, Percutaneous Approach (ICD-10-PCS; 2019-01-03)
PROC: 027034Z Dilation of Coronary Artery, One Artery with Drug-eluting Intraluminal Device, Percutaneous Approach (ICD-10-PCS; 2019-01-03)
PROC: 4A023N7 Measurement of Cardiac Sampling and Pressure, Left Heart, Percutaneous Approach (ICD-10-PCS; 2019-01-03)
PROC: B2111ZZ Fluoroscopy of Multiple Coronary Arteries using Low Osmolar Contrast (ICD-10-PCS; 2019-01-03)
PROC: B2151ZZ Fluoroscopy of Left Heart using Low Osmolar Contrast (ICD-10-PCS; 2019-01-03)
PROC: 05HY33Z Insertion of Infusion Device into Upper Vein, Percutaneous Approach (ICD-10-PCS; 2019-01-03)
PROC: 02PA3RZ Removal of Short-term External Heart Assist System from Heart, Percutaneous Approach (ICD-10-PCS; 2019-01-04)
PROC: 0T9B70Z Drainage of Bladder with Drainage Device, Via Natural or Artificial Opening (ICD-10-PCS; 2019-01-05)
PROC: 30233N1 Transfusion of Nonautologous Red Blood Cells into Peripheral Vein, Percutaneous Approach (ICD-10-PCS; 2019-01-10)
DX: I21.4 Non-ST elevation (NSTEMI) myocardial infarction (principal); J96.01 Acute respiratory failure with hypoxia; I50.41 Acute combined systolic (congestive) and diastolic (congestive) heart failure; N17.0 Acute kidney failure with tubular necrosis; D62 Acute posthemorrhagic anemia; N39.0 Urinary tract infection, site not specified; R79.1 Abnormal coagulation profile; B95.2 Enterococcus as the cause of diseases classified elsewhere; D63.8 Anemia in other chronic diseases classified elsewhere; E11.65 Type 2 diabetes mellitus with hyperglycemia; E78.5 Hyperlipidemia, unspecified; E83.42 Hypomagnesemia; H54.61 Unqualified visual loss, right eye, normal vision left eye; I08.1 Rheumatic disorders of both mitral and tricuspid valves; I25.10 Atherosclerotic heart disease of native coronary artery without angina pectoris; I25.5 Ischemic cardiomyopathy; Z66 Do not resuscitate; Z79.4 Long term (current) use of insulin; Z79.82 Long term (current) use of aspirin; Z82.49 Family history of ischemic heart disease and other diseases of the circulatory system; Z87.891 Personal history of nicotine dependence; Z95.1 Presence of aortocoronary bypass graft; Z95.5 Presence of coronary angioplasty implant and graft
CPT/HCPCS: 33990; 33992; 36415; 36600; 71045; 71046; 71250; 71275; 74176; 80048; 80053; 80061; 81001; 82040; 82274; 82330; 82803; 82962; 83036; 83540; 83550; 83735; 83880; 84100; 84443; 84484; 85014; 85018; 85025; 85049; 85347; 85520; 85730; 86850; 86900; 86923; 87077; 87081; 87086; 87186; 93005; 93306; 93308; 93325; 93458; 96374; 99156; 99157; C1760; C1769; C1894; C9600; G0378; J0295; J0583; J0696; J0697; J1265; J1644; J1650; J1815; J1940; J2250; J2405; J3010; J3370; J3475; J3480; P9045; Q9967; C1725; C1874; C1887; J0171; J2270; J2370; J7030; J7050; J7120; P9016